=== PATIENT | male | born 1945 | race African-American/Black ===

== ENCOUNTER 2018-04-06 19:18 | Emergency (ER) | payer MEDICARE ==
[~2018-04-06] VITALS: Ht 172.7 cm; Wt 86.8 kg
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
[2018-04-06 20:22] LABS: BASO # 0.1 x10^3/uL (0.0-0.2); BASO % 1 % (0-3); EOS % 0 % (0-3); HEMATOCRIT 44.3 % (39.0-53.0); HEMOGLOBIN 14.7 g/dL (13.0-17.5); LYMPH # 1.5 x10^3/uL (1.0-4.8); LYMPH % 18 % (24-48); MEAN CORPUSCULAR HEMOGLOBIN 31 pg (25-35); MEAN CORPUSCULAR HGB CONC 33 g/dL (31-37); MEAN CORPUSCULAR VOLUME 92 fL (79-100); MONO # 0.4 x10^3/uL (0.0-1.1); MONO % 4 % (0-9); NEUT # 6.3 x10^3uL (1.8-7.7); NEUT % 76 % (31-73); PLATELET COUNT 580 x10^3/uL (140-400); RED BLOOD COUNT 4.81 x10^6/uL (4.30-5.70); RED CELL DISTRIBUTION WIDTH 15.5 % (11.5-14.5); WHITE BLOOD COUNT 8.3 x10^3/uL (4.0-11.0)
--- NOTE | 2018-04-06 20:35 | RAD ---
CT Head W/O Contrast: History: seizure vs syncope, fell and hit occipital region of head
hx of 1 seizure in the past Comparison: none Axial images were obtained without contrast. The brito and white matter appears normal and symmetrical for the patients age. There is no mass effect, extraaxial fluid collections or hydrocephalus. There is no gross bleed. There is no focal loss of brito-white matter distinction to suggest acute ischemia, i.e. stroke. Impression: No acute findings. RS Compliance Statement: One or more of the following individualized dose reduction techniques were utilized for this examination: 1. Automated exposure control 2. Adjustment of the mA and/or kV according to patient size 3. Use of iterative reconstruction technique Electronically signed by: Ad Sharif III, MD (04/06/2018 8:31 PM) [facility]
[2018-04-06 20:39] LABS: ALBUMIN 3.7 g/dL (3.4-5.0); ALBUMIN/GLOBULIN RATIO 1.1 (1.0-1.7); CREATININE 1.2 mg/dL (0.7-1.3); POTASSIUM 3.9 mmol/L (3.5-5.1); TOTAL BILIRUBIN 0.4 mg/dL (0.2-1.0); TOTAL PROTEIN 7.2 g/dL (6.4-8.2)
[2018-04-06 22:22] VITALS: BP 139/94
--- NOTE | 2018-04-07 02:35 | EKG ---
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
== END 2018-04-06 22:24 | disposition home or self-care (01) ==
LOC: ER 19:18
DX: R55 Syncope and collapse (principal); R51 Headache; D69.6 Thrombocytopenia, unspecified; E78.00 Pure hypercholesterolemia, unspecified; I10 Essential (primary) hypertension
CPT/HCPCS: 36415; 70450; 80053; 83880; 84484; 85025; 93005; 99285-25

== ENCOUNTER → 2020-09-12 | Outpatient (CLI) | payer MEDICARE ==
[~2020-09-12] MED LIST: IOHEXOL 300 MG/ML 75 ML VIAL. IV ONE
[2020-09-12 10:32] LABS: CREATININE 1.3 mg/dL (0.7-1.3); GFR 64.8
--- NOTE | 2020-09-12 17:47 | RAD ---
CT scan abdomen and pelvis without contrast 09/12/2020 CLINICAL HISTORY: Prostate cancer. TECHNIQUE: Unenhanced, contiguous, 2.5 mm axial sections were obtained through the abdomen and pelvis . One or more of the following individualized dose reduction techniques were utilized for this study: 1. Automated exposure control. 2. Adjustment of the mA and/or kV according to patient size. 3. Use of iterative reconstruction technique. FINDINGS: Images through the lung bases demonstrate minimal dependent subsegmental atelectasis bilate rally. The liver, spleen, pancreas, and adrenal glands are within normal limits. Rounded low-attenuation les ions are seen involving both kidneys which measure 1 to 4.6 cm in size. These likely represent cysts. Surgical clips are seen within the gallbladder fossa consistent with a cholecystectomy. Atherosclerot ic calcification of the abdominal aorta and its branches is noted. Stents are seen within the proxima l common iliac arteries bilaterally. Air and stool are seen throughout the colon. Scattered diverticu la are seen throughout the colon. No inflammatory changes are seen in the adjacent fat. No retroperit osei lymphadenopathy is seen. Images through the pelvis demonstrate the urinary bladder distended with urine. The prostate gland is enlarged measuring 5.6 x 5.5 x 5.3 cm in AP, transverse and craniocaudal dimensions. This likely ref lects BPH. Calcifications are seen within the pelvis consistent with phleboliths. An enlarged pelvic lymph node is seen within the left inferior pelvis. It measures 1.2 cm in size. No additional enlarge d pelvic lymph node is seen. No inguinal lymphadenopathy is noted. No free fluid is seen. Very mild S-shaped curvature of the thoracolumbar spine is seen. Degenerative changes are seen involv ing the lower thoracic and throughout the lumbar spine along both hips. IMPRESSION: 1. The prostate gland is enlarged likely related to BPH. 2. Colonic diverticulosis. 3. A 1.2 cm left pelvic lymph node is seen within the left posterior pelvis. Extension of the patient 's known prostate cancer to involve this lymph node is not excluded. No additional lymphadenopathy is seen. Electronically signed by: Vik Minaya MD (09/12/2020 5:44 PM) [id number]
--- NOTE | 2020-09-12 17:55 | RAD ---
Bone scan 09/12/2020 CLINICAL HISTORY: Prostate cancer. TECHNIQUE: 3 hours after intravenous administration of 25.6 mCi of Technetium 99m MDP, whole body armen ging of the axial and appendicular skeleton was performed using the gamma camera. FINDINGS: Comparison is made to patient's CT scan of the abdomen and pelvis performed concurrently wi th this study. Areas of increased activity is seen involving both shoulders, the lower cervical spine, mid and lower thoracic spine, the lower lumbar spine and both hips along with the sternoclavicular joints, right g reater than left consistent with areas of degenerative change. No area of abnormally increased activi ty is seen suggest evidence of skeletal metastatic disease. FINDINGS: There is no scintigraphic evidence of skeletal metastatic disease. Electronically signed by: Vik Minaya MD (09/12/2020 5:53 PM) [id number]
== END ==
LOC: NM 09:03
PROVIDERS: ATTEND Urology
DX: C61 Malignant neoplasm of prostate (principal); N40.0 Benign prostatic hyperplasia without lower urinary tract symptoms; K57.30 Diverticulosis of large intestine without perforation or abscess without bleeding; J98.11 Atelectasis; N28.89 Other specified disorders of kidney and ureter; I70.0 Atherosclerosis of aorta; N32.89 Other specified disorders of bladder; R59.0 Localized enlarged lymph nodes; M43.8X5 Other specified deforming dorsopathies, thoracolumbar region; M47.815 Spondylosis without myelopathy or radiculopathy, thoracolumbar region
CPT/HCPCS: 36415; 74176; 78306; 82565; A9503

== ENCOUNTER 2020-12-13 15:50 | Emergency (ER) | payer MEDICARE ==
[~2020-12-13] VITALS: Ht 172.7 cm; Wt 80.0 kg
--- NOTE | 2020-12-13 16:44 | RAD ---
EXAM: Chest, single view. HISTORY: Syncope. COMPARISON: None. FINDINGS: A frontal view of the chest obtained. There is no infiltrate, pleural effusion or pneumotho rax. There is a prominent cardiac silhouette, likely accentuated due to portable technique. IMPRESSION: No acute pulmonary finding. Electronically signed by: Shivani Tolliver MD (12/13/2020 4:42 PM) [id number]
--- NOTE | 2020-12-13 17:05 | PHYS DOC ---
Past History Past Medical History: High Cholesterol, Hypertension Additional Past Medical Histor: prostate cancer (EKATERINA ROMANO APRN) Past Surgical History: Appendectomy, Cholecystectomy, Tonsillectomy, Other Additional Past Surgical Histo: prostatectomy, (EKATERINA ROMANO APRN) Alcohol Use: Occasionally Drug Use: None (EKATERINA ROMANO APRN) General Adult EDM: Chief Complaint: MECHANICAL FALL HPI: HPI: Patient is a 75-year-old male for a fall and syncopal episode. Patient denies dizziness. Denies chest pain. Patient denies any head or neck pain. Patient states that he does not recall what happened. Patient states that lasting remembers going into the restroom and then waking up on the living room floor. EMS states that he was found in the bathroom by his daughter and granddaughter. Patient denies history of NC or stroke. (EKATERINA ROMANO APRN) Review of Systems: Review of Systems: Constitutional: Denies fever or chills Eyes: Denies change in visual acuity HENT: Denies nasal congestion or sore throat Respiratory: Denies cough or shortness of breath Cardiovascular: Denies chest pain or edema GI: Denies abdominal pain, nausea, vomiting, bloody stools or diarrhea : Denies dysuria Musculoskeletal: Denies back pain or joint pain Integument: Denies rash Neurologic: Denies headache, focal weakness or sensory changes Endocrine: Denies polyuria or polydipsia Lymphatic: Denies swollen glands Psychiatric: Denies depression or anxiety (EKATERINA ROMANO APRN) Allergies: Allergies: Allergies Coded Allergies Type Severity Reaction Last Updated Verified No Known Drug Allergies 04/06/18 No (EKATERINA ROMANO APRN) Physical Exam: PE: Constitutional: Well developed, well nourished, no acute distress, non-toxic appearance. [] HENT: Normocephalic, atraumatic, bilateral external ears normal, oropharynx moist, no oral exudates, nose normal. [] Eyes: PERRLA, EOMI, conjunctiva normal, no discharge. [] Neck: Normal range of motion, no tenderness, supple, no stridor. [] Cardiovascular:Heart rate regular rhythm, no murmur [] Lungs & Thorax: Bilateral breath sounds clear to auscultation [] Abdomen: Bowel sounds normal, soft, no tenderness, no masses, no pulsatile masses. [] Skin: Warm, dry, no erythema, no rash. [] Back: No tenderness, no CVA tenderness. [] Extremities: No tenderness, no cyanosis, no clubbing, ROM intact, no edema. [] Neurologic: Alert and oriented X 3, normal motor function, normal sensory function, no focal deficits noted. [] Psychologic: Affect normal, judgement normal, mood normal. [] (EKATERINA ROMANO APRN) Current Patient Data: Vital Signs: Vital Signs Date Time Temp Pulse Resp B/P (MAP) Pulse Ox O2 Delivery O2 Flow Rate FiO2 12/13/20 16:11 97.8 83 16 146/80 (102) 98 Room Air (EKATERINA ROMANO APRN) EKG: EKG: Sinus rhythm. Heart rate 79 bpm. No STEMI. [] Repeat EKG showed no changes, no STEMI. Sinus rhythm. Heart rate 79 bpm. (EKATERINA ROMANO APRN) EKG: My interpretation EKG G #1 shows a sinus rhythm at 79 bpm. Some bimodal P waves. No findings acute STEMI or contralateral changes. EKG time was 1628 hrs. My interpretation of EKG #2 shows a sinus rhythm at 79 bpm. No acute morphology. Second EKG was at 1859 hrs. (GATO VILCHIS MD) Radiology/Procedures: Radiology/Procedures: []EXAM: CT head without contrast INDICATION: Fall COMPARISON: CT head 04/06/2018 TECHNIQUE: Axial CT imaging through the head without intravenous contrast. Sagittal and coronal reformats were obtained of the cervical spine. One or more of the following individualized dose reduction techniques were utilized for this examination: 1. Automated exposure control 2. Adjustment of the mA and/or kV according to patient size 3. Use of iterative reconstruction technique. FINDINGS: CT head: Ventricles and sulci are prominent. [place]-white matter differentiation is maintained. No intracranial hemorrhage, acute infarct, or mass lesion. There is no acute fracture. The paranasal sinuses are clear. Mastoid air cells are sclerotic in appearance. Globes and orbits are intact. CT cervical spine: No acute fracture. Alignment is normal. There is mild disc space narrowing at C5-C6. Facet joints are normal. No bony canal or foraminal narrowing. Prevertebral soft tissues is normal. IMPRESSION: 1. No acute intracranial abnormality. 2. No acute osseous abnormality of the cervical spine. Electronically signed by: Angie Jackson MD (12/13/2020 5:19 PM) [id number] EXAM: Chest, single view. HISTORY: Syncope. COMPARISON: None. FINDINGS: A frontal view of the chest obtained. There is no infiltrate, pleural effusion or pneumothorax. There is a prominent cardiac silhouette, likely accentuated due to portable technique. IMPRESSION: No acute pulmonary finding. Electronically signed by: Shivani Tolliver MD (12/13/2020 4:42 PM) [id number] (EKATERINA ROMANO APRN) Heart Score: C/O Chest Pain: No Risk Factors: Risk Factors: DM, Current or recent (<one month) smoker, HTN, HLP, family hist ory of CAD, obesity. Risk Scores: Score 0 - 3: 2.5% MACE over next 6 weeks - Discharge Home Score 4 - 6: 20.3% MACE over next 6 weeks - Admit for Clinical Observation Score 7 - 10: 72.7% MACE over next 6 weeks - Early Invasive Strategies (EKATERINA ROMANO APRN) C/O Chest Pain: No HEART Score for Chest Pain: HEART Score for Chest Pain Response (Comments) Value History Slighlty/Non-Suspicious 0 ECG Normal 0 Age > 65 2 Risk Factors 1 or 2 Risk Factors 1 Troponin < Normal Limit 0 Total 3 (GATO VILCHIS MD) Course & Med Decision Making: Course & Med Decision Making Pertinent Labs and Imaging studies reviewed. (See chart for details) [] 75-year-old male brought in by EMS after a fall and syncopal episode. Patient is denying pain. Denies being on blood thinners. Patient states last thing he remembers is waking up on the living room floor after going to the restroom. CT head and cervical spine ordered to rule out bleeding or fracture. Patient is alert and oriented. Neuro exam is negative. Denies weakness or sensory changes. No evidence of skull fracture. CT head neck negative for fracture or intracranial bleeding. Labs are unremarkable. Troponin is negative. Advised patient that he may be sore for the next couple of days due to syncopal episode. Patient still denying pain at this time. Instructed patient to follow-up with his PCP for further management and possible referral. Patient denies all symptoms. Patient is hemodynamically stable able to ambulate on his own. Was preparing to give discharge paperwork when patient had a seizure-like activity that lasted about 30 seconds. Patient was back to baseline in about a minute. Patient does have a history of seizures and was seen for them about 4 years ago. Patient denies being on any medication for seizures anymore but was at the time. Repeat EKG, repeat troponin ordered to rule out arrhythmia. Patient given 1 of Ativan and 500 mg of Keppra. Patient is refusing to be admitted to the hospital overnight. Explained to patient the risk of going home by himself and having another seizure. Daughter states that her cousin lives in the same building as her father will check on him overnight. Patient agrees with discharge plan to follow-up with neurology and PCP, and to start Keppra. Patient to start on 500 mg of Keppra twice daily and follow-up with PCP for possible referral for neurology again. (EKATERINA ROMANO APRN) Course & Med Decision Making Patient return if any concerns. Keep follow-up primary care. Patient currently refusing admission for further observation evaluation. Patient aware of risk of his request for discharge. Must follow-up. Impression: 1. Syncope 2. Mild Leukocytosis- 14l 3. Hx HTN 4. Hx elevated Cholesterol (GATO VILCHIS MD) Honey Disclaimer: Honey Disclaimer: This electronic medical record was generated, in whole or in part, using a voice recognition dictation system. (EKATERINA ROMANO APRN) Departure Departure: Impression: Primary Impression: Syncope Qualified Codes: R55 - Syncope and collapse Disposition: HOME / SELF CARE / HOMELESS Condition: STABLE Referrals: WALI MOSLEY (PCP) Patient Instructions: Syncope Additional Instructions: You were seen in the emergency room after passing out today at home. You may be sore the next couple of days due to the fall. CT of your head and spine was negative for bleeding or fracture. Please call your PCP on Wednesday to set up a follow-up appointment and possible referral. Please return to emergency room with worsening symptoms or concerns. EMERGENCY DEPARTMENT GENERAL DISCHARGE INSTRUCTIONS Thank you for coming to [facility] (ED) today and trusting us with you care. We trust that you had a positivie experience in our Emergency Department. If you wish to speak to the department management, you may call the director at [phone]. YOUR FOLLOW UP INSTRUCTIONS ARE FOLLOWS: 1. Do you have a private Doctor? If you do not have a private doctor, please ask for a resource list of physicians or clinics that may be able to assist you with follow up care. 2. The Emergency Physician has interpreted your x-rays. The X-Ray specialist will also review them. If there is a change in the findings, you will be notified in 48 hours when at all possible. 3. A lab test or culture has been done, your results will be reviewed and you will be notified if you need a change in treatment. ADDITIONAL INSTRUCTIONS AND INFORMATION: 1. Your care today has been supervised by a physician who is specially trained in emergency care. Many problems require more than one evaluation for a complete diagnosis and treatment. We recommend that you schedule your follow up appointment as recommended to ensure complete treatment of you illness or injury. If you are unable to obtain follow up care and continue to have a problem, or if your condition worsens, we recommend that you return to the ED. 2. We are not able to safely determine your condition over the phone nor are we able to give sound medical advice over the phone. For these safety reasons, if you call for medical advice we will ask you to come to the ED for further evaluation. 3. If you have any questions regarding these discharge instructions please call the ED at [phone]. SAFETY INFORMATION: In the interest of safety, wellness, and injury prevention; we encourage you to wear your sealbelt, if you smoke; quite smoking, and we encourage family to use a protective helmet for bicycling and other sporting events that present an increased risk for head injury. IF YOUR SYMPTOMS WORSEN OR NEW SYMPTOMS DEVELOP, OR YOU HAVE CONCERNS ABOUT YOUR CONDITION; OR IF YOUR CONDITION WORSENS WHILE YOU ARE WAITING FOR YOUR FOLLOW UP APPOINTMENT; EITHER CONTACT YOUR PRIMARY CARE DOCTOR, THE PHYSICIAN WHOSE NAME AND NUMBER YOU WERE GIVEN, OR RETURN TO THE ED IMMEDIATELY. Scripts Levetiracetam (KEPPRA) 500 Mg Tablet 1 TAB PO BID for seizures for 30 Days, #60 TAB 0 Refills Prov: EKATERINA ROMANO APRN 12/13/20 Attending Signature Attending Signature I have participated in the care of this patient and I have reviewed and agree with all pertinent clinical information above including history, exam, and recommendations. (GATO VILCHIS MD) EKATERINA ROMANO APRN December 13, 2020 17:05 GATO VILCHIS MD December 14, 2020 08:35
--- NOTE | 2020-12-13 17:21 | RAD ---
EXAM: CT head without contrast INDICATION: Fall COMPARISON: CT head 04/06/2018 TECHNIQUE: Axial CT imaging through the head without intravenous contrast. Sagittal and coronal refor mats were obtained of the cervical spine. One or more of the following individualized dose reduction techniques were utilized for this examinat ion: 1. Automated exposure control 2. Adjustment of the mA and/or kV according to patient size 3. Use of iterative reconstruction technique. FINDINGS: CT head: Ventricles and sulci are prominent. [place]-white matter differentiation is maintained. No intracranial hemorrhage, acute infarct, or mass lesion. There is no acute fracture. The paranasal sinuses are sandra r. Mastoid air cells are sclerotic in appearance. Globes and orbits are intact. CT cervical spine: No acute fracture. Alignment is normal. There is mild disc space narrowing at C5-C6. Facet joints are normal. No bony canal or foraminal narrowing. Prevertebral soft tissues is normal. IMPRESSION: 1. No acute intracranial abnormality. 2. No acute osseous abnormality of the cervical spine. Electronically signed by: Angie Jackson MD (12/13/2020 5:19 PM) [id number]
--- NOTE | 2020-12-13 17:24 | EKG ---
[address] [address] Test Date: 2020-12-13 Test Time: 16:28:05 Pat Name: DIOGENES WALL Department: Room: Gender: M Barber: RAMONA : 1945 Requested By: EKATERINA ROMANO Order Number: [id number] Reading MD: Measurements Intervals [place] Rate: 79 P: 38 NM: 160 QRS: 13 QRSD: 86 T: 30 QT: 376 QTc: 432 Interpretive Statements SINUS RHYTHM LEFT ATRIAL ABNORMALITY ABNORMAL ECG RI6.02 No previous ECG available for comparison
[2020-12-13 17:30] LABS: BASO # 0.1 x10^3/uL (0.0-0.2); BASO % 1 % (0-3); EOS # 0.1 x10^3/uL (0.0-0.7); EOS % 1 % (0-3); HEMATOCRIT 42.4 % (39.0-53.0); HEMOGLOBIN 13.7 g/dL (13.0-17.5); LYMPH # 1.6 x10^3/uL (1.0-4.8); LYMPH % 12 % (24-48); MEAN CORPUSCULAR HEMOGLOBIN 29 pg (25-35); MEAN CORPUSCULAR HGB CONC 32 g/dL (31-37); MEAN CORPUSCULAR VOLUME 91 fL (79-100); MONO # 0.7 x10^3/uL (0.0-1.1); MONO % 5 % (0-9); NEUT # 11.6 x10^3uL (1.8-7.7); NEUT % 82 % (31-73); PLATELET COUNT 529 x10^3/uL (140-400); RED BLOOD COUNT 4.68 x10^6/uL (4.30-5.70); RED CELL DISTRIBUTION WIDTH 17.1 % (11.5-14.5); WHITE BLOOD COUNT 14.1 x10^3/uL (4.0-11.0)
[2020-12-13 17:37] LABS: CALCIUM 9.5 mg/dL (8.5-10.1); CREATININE 1.2 mg/dL (0.7-1.3); POTASSIUM 3.4 mmol/L (3.5-5.1)
[2020-12-13 17:43] LABS: ALBUMIN 3.9 g/dL (3.4-5.0); TOTAL BILIRUBIN 0.6 mg/dL (0.2-1.0)
[2020-12-13] MEDS ORDERED: levETIRAcetam 500 MG TABLET PO SCH (19:00)
--- NOTE | 2020-12-13 19:07 | EKG ---
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
[2020-12-13] MEDS ORDERED: LEVE500T56 PO (19:39)
[2020-12-13 19:40] VITALS: BP 138/70
== END 2020-12-13 19:45 | disposition home or self-care (01) ==
LOC: ER 15:50
DX: R55 Syncope and collapse (principal); I10 Essential (primary) hypertension; E78.5 Hyperlipidemia, unspecified; Z90.49 Acquired absence of other specified parts of digestive tract
CPT/HCPCS: 36415; 70450; 71045; 72125; 80053; 84484; 85025; 93005; 96374; 99284; J2060

== ENCOUNTER → 2021-10-21 | Outpatient (CLI) | payer MEDICARE ==
[~2021-10-21] MED LIST changes: -IOHEXOL 300 MG/ML 75 ML VIAL. IV ONE; +LEVE500T56 PO
--- NOTE | 2021-10-24 16:17 | RAD ---
Nuclear medicine whole body bone scan History: Reason: Prostate CA Comparison: Whole-body bone scan 06/03/2021 and 09/12/2020. Technique: Examination performed after intravenous administration of 25 mCi Technetium 99m MDP. Imag es of the whole body were obtained in the anterior and posterior projections. 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 There is more intense tracer uptake throughout the thoracolumbar spine. There is increased tracer uptake in the proximal femurs and at the shoulder s. There is increased tracer uptake of the sternum. No appreciable tracer is seen in the soft tissues compatible with a SuperScan. 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 Electronically signed by: Nas Courtney MD (10/24/2021 4:15 PM) [id number]
== END ==
LOC: NM 09:04
PROVIDERS: ATTEND Physician Assistant
DX: C79.51 Secondary malignant neoplasm of bone (principal); C61 Malignant neoplasm of prostate
CPT/HCPCS: 78306; A9503